=== PATIENT | male | born 1995 | race Hispanic/Latino ===

== ENCOUNTER 2017-08-15 19:45 | Emergency (ER) | payer BC ==
[~2017-08-15] VITALS: Ht 190.5 cm; Wt 131.8 kg
[~2017-08-15 19:45] MED LIST: A/B OTIC AS; NO; ONDANSETRON4 MG OR; ULTRAM50 M1 PO
[2017-08-16] MEDS ORDERED: MOTRIN400 MG PO (00:08)
[2017-08-16 00:18] VITALS: BP 164/90
== END 2017-08-16 00:18 | disposition home or self-care (01) | DRG 556 ==
LOC: ED 19:45
DX: M25.561 Pain in right knee (principal); R50.9 Fever, unspecified

== ENCOUNTER 2018-04-14 14:22 | Emergency (ER) | payer SELFPAY ==
[~2018-04-14] VITALS: Ht 190.5 cm; Wt 127.0 kg
[~2018-04-14 14:22] MED LIST changes: +MOTRIN400 MG PO
[2018-04-14] MEDS ORDERED: MEDDOSEPAK PO (15:25)
[2018-04-14] MEDS ORDERED: PROVENTIL HFA IN (15:25)
[2018-04-14] MEDS ORDERED: ZITHROMAX250 MG PO (15:25)
[2018-04-14 15:32] VITALS: BP 160/90
== END 2018-04-14 15:32 | disposition home or self-care (01) | DRG 203 ==
LOC: ED 14:22
DX: J40 Bronchitis, not specified as acute or chronic (principal)